=== PATIENT | female | born 1980 ===

== ENCOUNTER 2019-06-12 10:25 | Emergency (ER) | payer SELFPAY ==
[2019-06-12 10:45] VITALS: BP 118/69
--- NOTE | 2019-06-12 11:16 | Emergency Department Report ---
ED General Adult HPI - General Chief complaint: Chest Pain Stated complaint: CHEST PAIN/DIFFICULTY BREATHING Time Seen by Provider: 06/12/19 11:12 Source: patient Mode of arrival: Wheelchair Limitations: No Limitations - History of Present Illness Initial comments: Patient is a 38-year-old female with no significant past medical history. Patient presented to the ER complaining of chest pain, shortness of breath, tightness in her extremities and numbness to her lips. Patient stated the symptoms started while she is finishing sex with her partner. Partner present in the room. He said he called his friend who is a medical doctor and ask her to come down and take a deep breath and her symptoms completely resolved after that. Patient stated that they came to the ER just to make sure that she does not have a stroke. - Related Data Allergies Allergy/AdvReac Type Severity Reaction Status Date / Time No Known Allergies Allergy Unverified 06/12/19 10:31 ED Review of Systems ROS: Stated complaint: CHEST PAIN/DIFFICULTY BREATHING Other details as noted in HPI Comment: All other systems reviewed and negative Constitutional: denies: chills, fever Respiratory: shortness of breath (Resolved). denies: cough Cardiovascular: chest pain (Resolved) Neurological: numbness. denies: headache, weakness, paresthesias, confusion, abnormal gait, vertigo ED Past Medical Hx - Past Medical History Previous Medical History?: No - Surgical History Past Surgical History?: No - Social History Smoking Status: Never Smoker Substance Use Type: None ED Physical Exam - General Limitations: No Limitations General appearance: alert, in no apparent distress - Head Head exam: Present: atraumatic, normocephalic, normal inspection - Eye Eye exam: Present: normal appearance - ENT ENT exam: Present: normal exam, normal orophraynx, mucous membranes moist - Neck Neck exam: Present: normal inspection, full ROM. Absent: tenderness, me ningismus - Respiratory Respiratory exam: Present: normal lung sounds bilaterally - Cardiovascular Cardiovascular Exam: Present: regular rate, normal rhythm, normal heart sounds - GI/Abdominal GI/Abdominal exam: Present: soft, normal bowel sounds. Absent: distended, tenderness, guarding, rebound, rigid, organomegaly, mass, bruit, pulsatile mass, hernia - Extremities Exam Extremities exam: Present: normal inspection, full ROM, normal capillary refill. Absent: tenderness, pedal edema, calf tenderness - Back Exam Back exam: Present: normal inspection, full ROM. Absent: CVA tenderness (R), CVA tenderness (L) - Neurological Exam Neurological exam: Present: alert, oriented X3, CN II-XII intact, normal gait, reflexes normal - Psychiatric Psychiatric exam: Present: normal mood - Skin Skin exam: Present: warm, intact, normal color ED Course Vital Signs 06/12/19 10:43 Temperature 97.8 F Pulse Rate 81 Respiratory 16 Rate Blood Pressure 118/69 [Left] O2 Sat by Pulse 96 Oximetry ED Medical Decision Making - EKG Data -: EKG Interpreted by Me EKG shows normal: sinus rhythm Rate: normal - Medical Decision Making Patient is a 38-year-old female with no significant past medical history. Patient presented to the ER complaining of chest pain, shortness of breath, tightness in her extremities and numbness to her lips. Patient stated the symptoms started while she is finishing sex with her partner. Partner present in the room. He said he called his friend who is a medical doctor and ask her to come down and take a deep breath and her symptoms completely resolved after that. Patient stated that they came to the ER just to make sure that she does not have a stroke EKG show normal sinus rhythm and no ST elevation or depression. Patient remained stable in the ER with no chest pain or shortness of breath. Patient advised to follow-up with her primary care physician in the next 2 to 3 days and to return to the ER if she develop any new symptoms. Critical care attestation.: If time is entered above; I have spent that time in minutes in the direct care of this critically ill patient, excluding procedure time. ED Disposition Clinical Impression: Chest pain Disposition: DC-01 TO HOME OR SELFCARE Is pt being admited?: No Condition: Stable Instructions: Chest Pain (ED), Anxiety (ED) Referrals: PRIMARY CARE, [Referring] - 3-5 Days
== END 2019-06-12 11:20 | disposition home or self-care (01) ==
LOC: ED 10:25
DX: R07.9 Chest pain, unspecified (principal); R06.00 Dyspnea, unspecified; R06.02 Shortness of breath
CPT/HCPCS: 93005; 93010